=== PATIENT | male | born 1985 | race Hispanic/Latino ===

== ENCOUNTER 2024-01-01 17:00 | Emergency (ER) | payer BC ==
[2024-01-01] MEDS ORDERED: Ketorolac Tromethamine 30 MG (1 mL) VIAL ONE (19:21)
[2024-01-01] MEDS ORDERED: Lidocaine 4% Patch ONE (19:22)
== END 2024-01-01 19:57 | disposition home or self-care (01) ==
LOC: CSHERS 17:00
DX: M54.41 Lumbago with sciatica, right side (principal)
CPT/HCPCS: 96372; 99283; J1885

== ENCOUNTER 2024-01-04 12:17 | Emergency (ER) | payer BC ==
[2024-01-04] MEDS ORDERED: methylPREDNISolone Sod Succ/PF 125 MG/2 ML VIAL ONE (13:07)
== END 2024-01-04 13:35 | disposition home or self-care (01) ==
LOC: CSHERS 12:17
DX: M54.31 Sciatica, right side (principal)
CPT/HCPCS: 96372; 99283; J2919